=== PATIENT | female | born 1945 | race Caucasian/White ===

== ENCOUNTER → 2020-03-26 | Outpatient (CLI) | payer MEDICARE, BC ==
--- NOTE | 2020-03-26 10:07 | CT ---
EXAMINATION TYPE: CT shoulder RT wo con DATE OF EXAM: 03/26/2020 COMPARISON: None HISTORY: Rt shoulder pain, pre op CT DLP: 572.4 mGycm Automated exposure control for dose reduction was used. FINDINGS: Axial images were obtained at 3 mm thick sections. Reconstructed coronal and sagittal plane are revie wed. Three-D reconstructed images are reviewed. There is loss of the glenohumeral joint space. Humeral head spurring is evident. Subchondral cyst formation at the humeral head is evident. Subchondral cyst may be within the glenoid Acromioclavicular joint appears intact. No acute fractures are identified. IMPRESSION: MODERATELY ADVANCED OSTEOARTHRITIC DEGENERATIVE CHANGE RIGHT SHOULDER.
== END | disposition home or self-care (01) ==
LOC: RADCTMAIN 07:04
PROVIDERS: ATTEND Orthopaedic Surgery Sports Medicine
DX: M19.011 Primary osteoarthritis, right shoulder (principal); I10 Essential (primary) hypertension; M19.012 Primary osteoarthritis, left shoulder; Z85.9 Personal history of malignant neoplasm, unspecified

== ENCOUNTER → 2020-04-01 | Outpatient (CLI) | payer MEDICARE, BC ==
[2020-04-01 15:16] LABS: Albumin 4.2 g/dL (3.5-5.0); Calcium 10.2 mg/dL (8.4-10.2); Potassium 4.2 mmol/L (3.5-5.1); Total Bilirubin 0.4 mg/dL (0.2-1.3); Total Protein 7.5 g/dL (6.3-8.2)
[2020-04-01 15:18] LABS: HCT 42.7 % (34.0-46.0); HGB 13.5 gm/dL (11.4-16.0); MCH 31.5 pg (25.0-35.0); MCHC 31.7 g/dL (31.0-37.0); MCV 99.6 fL (80.0-100.0); Mean Platelet Volume 7.1; Platelet Count 248 k/uL (150-450); RBC 4.29 m/uL (3.80-5.40); RDW 13.3 % (11.5-15.5); WBC 7.9 k/uL (3.8-10.6)
[2020-04-01 15:20] LABS: INR 0.9 (<1.2); Prothrombin Time 9.7 sec (9.0-12.0)
[2020-04-01 16:09] LABS: Appearance,Urine Slightly Cloudy (Clear); Bilirubin,Urine Negative (Negative); Blood,Urine Negative (Negative); Color,Urine Yellow; Glucose,Urine (UA) Negative (Negative); Hyaline Casts,Urine 1 /lpf (0-2); Ketones,Urine Negative (Negative); Mucus,Urine Rare /hpf; Protein,Urine Negative (Negative); RBC,Urine 1 /hpf (0-5); Specific Gravity,Urine 1.015 (1.001-1.035); Squamous Epithelial Cell,Urine <1 /hpf (0-4); WBC,Urine 1 /hpf (0-5)
[2020-04-01 16:10] LABS: Leukocyte Esterase,Urine Negative (Negative); Nitrite,Urine Negative (Negative); Urobilinogen,Urine <2.0 mg/dL (<2.0)
== END | disposition home or self-care (01) ==
LOC: LABPAT 14:52
PROVIDERS: ATTEND Orthopaedic Surgery Sports Medicine
DX: Z01.818 Encounter for other preprocedural examination (principal)
CPT/HCPCS: 36415; 80053; 81001; 85027; 85610; 85730

== ENCOUNTER → 2020-04-05 | Outpatient (CLI) | payer MEDICARE, BC | END | disposition home or self-care (01) | LOC: LABPAT 10:21 | PROVIDERS: ATTEND Orthopaedic Surgery Sports Medicine | DX: Z01.812 Encounter for preprocedural laboratory examination (principal) | CPT/HCPCS: 87070 ==

== ENCOUNTER 2020-04-11 07:07 | Inpatient (IN) | payer MEDICARE, BC ==
[2020-04-08 16:13] VITALS: BMI 37.0
[~2020-04-11 07:07] MED LIST: DEXAMETHASONE SOD PHOSPHATE 10 MG/ML 1 ML VIAL IV ONE; LIDOCAINE 1% (10MG/ML) FOR IV START INTRADERMA PRN; ONDANSETRON 4 MG/2 ML VIAL IVP ONE
[2020-04-11] MEDS: LACTATED RINGERS 1,000 ML IV SCH ×3 (07:45→22:58)
[2020-04-11] MEDS ORDERED: ONDANSETRON 4 MG/2 ML VIAL ONE ×2 (07:53→09:31)
[2020-04-11] MEDS ORDERED: diphenhydrAMINE 25 MG CAP PO PRN (09:27)
[2020-04-11] MEDS ORDERED: TEMAZEPAM 15 MG CAP PO PRN (09:27)
[2020-04-11] MEDS ORDERED: SENNOSIDES-DOCUSATE SODIUM 1 EACH TAB PO PRN (09:27)
[2020-04-11] MEDS ORDERED: METOCLOPRAMIDE 5 MG/ML 2 ML VIAL IVP PRN (09:27)
[2020-04-11] MEDS ORDERED: HYDROmorphone 0.5 MG/0.5 ML SYRINGE IVP PRN ×3 (09:27)
[2020-04-11] MEDS ORDERED: ONDANSETRON 4 MG/2 ML VIAL IVP PRN (09:27)
[2020-04-11] MEDS ORDERED: SODIUM CHLORIDE 0.9% 100 ML BAG ONE (09:31)
[2020-04-11] MEDS ORDERED: SUCCINYLCHOLINE CHLORIDE VIAL 200 MG/10 ML VIAL IV ONE (09:31)
[2020-04-11] MEDS ORDERED: TRANEXAMIC ACID 1,000 MG/10 ML VIAL ONE (09:31)
[2020-04-11] MEDS ORDERED: ePHEDrine SULFATE/0.9% NACL/PF 50 MG/5 ML SYRINGE IV ONE (09:31)
[2020-04-11] MEDS ORDERED: ROCURONIUM BROMIDE 10 MG/ML 5 ML VIAL IV ONE (09:31)
[2020-04-11] MEDS ORDERED: NEOSTIGMINE 1 MG/ML 10 ML VIAL ONE (09:31)
[2020-04-11] MEDS ORDERED: PROPOFOL 10 MG/ML 20 ML VIAL IV ONE (09:31)
[2020-04-11] MEDS ORDERED: LIDOCAINE 1% INJ 10MG/ML (20 ML MDV) ONE (09:31)
[2020-04-11] MEDS ORDERED: MIDAZOLAM 2 MG/2 ML VIAL ONE (09:31)
[2020-04-11] MEDS ORDERED: GLYCOPYRROLATE 0.2 MG/ML 2 ML VIAL ONE (09:31)
[2020-04-11] MEDS ORDERED: fentaNYL (PF) 50 MCG/ML 2 ML AMP ONE (09:31)
[2020-04-11] MEDS ORDERED: HYDROcodone/APAP 7.5-325MG 1 EACH TAB PO PRN ×2 (09:32)
[2020-04-11] MEDS ORDERED: VANCOMYCIN 1,000 MG VIAL MISCELLANE ONE (10:15)
[2020-04-11] MEDS: HYDROmorphone 0.5 MG/0.5 ML SYRINGE IVP PRN ×3 (11:47→13:56)
[2020-04-11] MEDS ORDERED: LACTATED RINGERS 1,000 ML IV ONE ×2 (12:15)
--- NOTE | 2020-04-11 13:49 | XR ---
EXAMINATION TYPE: XR shoulder limited RT DATE OF EXAM: 04/11/2020 CLINICAL HISTORY: pain TECHNIQUE: Portable right shoulder. COMPARISON: None FINDINGS: Portable view of the right shoulder demonstrates postoperative the glenohumeral prosthesis with normal alignment. Postsurgical soft tissue changes noted. IMPRESSION: As above.
[2020-04-11] MEDS ORDERED: ALBUTEROL NEBULIZED 2.5 MG/3 ML INHALATION PRN (14:18)
--- NOTE | 2020-04-11 14:28 | P.CONS ---
History of Present Illness - Reason for Consult Bradycardia - History of Present Illness Patient is a pleasant 72-year-old female admitted for right shoulder arthroplasty successfully underwent surgery. Patient is still has some pain patient has a surgical drain. Patient is drowsy and still coming out of anesthesia. Patient denied any fever chills dysuria nausea vomiting. Patient the does have history of hypertension blood pressure is low normal which is expected postoperatively patient is on 3 antihypertensive medications including amlodipine, GRECIA inhibitor and propranolol patient is bit bradycardic as well. Heart rate is in 40s Review of Systems REVIEW OF SYSTEMS: CONSTITUTIONAL: No fever, no malaise, no fatigue. HEENT: No recent visual problems or hearing problems. Denied any sore throat. CARDIOVASCULAR: No chest pain, orthopnea, PND, no palpitations, no syncope. PULMONARY: No shortness of breath, no cough, no hemoptysis. GASTROINTESTINAL: No diarrhea, no nausea, no vomiting, no abdominal pain. NEUROLOGICAL: No headaches, no weakness, no numbness. HEMATOLOGICAL: Denies any bleeding or petechiae. GENITOURINARY: Denies any burning micturition, frequency, or urgency. MUSCULOSKELETAL/RHEUMATOLOGICAL: Denies any joint pain, swelling, or any muscle pain. ENDOCRINE: Denies any polyuria or polydipsia. The rest of the 14-point review of systems is negative. Past Medical History Past Medical History: Cancer, Hyperlipidemia, Hypertension, Osteoarthritis (OA) Additional Past Medical History / Comment(s): palpitations, tachycardia, no current rx needed for cholesterol, breast cancer, got psuedomonas infection in sinuses after sinus surgery History of Any Multi-Drug Resistant Organisms: None Reported Past Surgical History: Appendectomy, Breast Surgery, Joint Replacement Additional Past Surgical History / Comment(s): roel hip replacement, sinus surgery x 2, roel oophorectomy, hysteroscopy x 2, roel cateracts, rt breast lumpectomy x2, Past Anesthesia/Blood Transfusion Reactions: Postoperative Nausea & Vomiting (PONV) Past Psychological History: No Psychological Hx Reported Smoking Status: Never smoker Past Alcohol Use History: Rare Past Drug Use History: None Reported - Past Family History Father Family Medical History: Cancer Brother(s) Family Medical History: Cancer Mother Family Medical History: Pulmonary Embolus Medications and Allergies Home Medications Medication Instructions Recorded Confirmed Type Albuterol Inhaler [Ventolin Hfa 1 puff INHALATION DIRECTED PRN 04/08/20 04/08/20 History Inhaler] Aspirin [Adult Low Dose Aspirin EC] 81 mg PO DAILY 04/08/20 04/08/20 History Cholecalciferol (Vitamin D3) 5,000 unit PO DAILY 04/08/20 04/08/20 History [Vitamin D3] Propranolol HCl [Propranolol HCl 120 mg PO DAILY 04/08/20 04/08/20 History ER] Ramipril [Altace] 10 mg PO DAILY 04/08/20 04/08/20 History Turmeric Root Extract [Turmeric] 500 mg PO DAILY 04/08/20 04/08/20 History amLODIPine [Norvasc] 5 mg PO DAILY 04/08/20 04/08/20 History Doxycycline Hyclate 100 mg PO BID #10 tab 04/11/20 Rx HYDROcodone/APAP 7.5-325MG [Blanchard 1 - 2 each PO Q6HR PRN #56 tab 04/11/20 Rx 7.5-325] Allergies Allergy/AdvReac Type Severity Reaction Status Date / Time Iodinated Contrast Media Allergy Rash/Hives Verified 04/11/20 07:49 Sulfa (Sulfonamide Allergy Rash/Hives/ Verified 04/08/20 15:59 Antibiotics) itching Physical Exam Vitals: Vital Signs Temp Pulse Pulse Resp BP BP Pulse Ox 04/11/20 14:00 46 L 16 117/65 100 04/11/20 13:30 45 L 16 114/65 97 04/11/20 13:00 41 L 16 109/63 97 04/11/20 12:45 41 L 14 107/59 97 04/11/20 12:30 44 L 16 106/60 98 04/11/20 12:15 43 L 16 105/56 95 04/11/20 12:00 45 L 16 103/58 97 04/11/20 11:45 51 L 16 108/55 97 04/11/20 11:30 96.8 F L 59 L 16 122/68 98 04/11/20 07:42 98.1 F 66 20 140/67 96 Intake and Output 04/10/20 04/11/20 04/11/20 22:59 06:59 14:59 Intake Total 1050 Output Total 130 Balance 920 Intake: IV 1050 Output: Estimated Blood Loss 130 Other: Weight 93.6 kg PHYSICAL EXAMINATION: GENERAL: The patient is alert and oriented x3, not in any acute distress. Well developed, well nourished. HEENT: Pupils are round and equally reacting to light. EOMI. No scleral icterus. No conjunctival pallor. Normocephalic, atraumatic. No pharyngeal erythema. No thyromegaly. CARDIOVASCULAR: S1 and S2 present. No murmurs, rubs, or gallops. PULMONARY: Chest is clear to auscultation, no wheezing or crackles. ABDOMEN: Soft, nontender, nondistended, normoactive bowel sounds. No palpable organomegaly. MUSCULOSKELETAL: No joint swelling or deformity. Right shoulder has surgical packing and has a surgical drain EXTREMITIES: No cyanosis, clubbing, or pedal edema. NEUROLOGICAL: Gross neurological examination did not reveal any focal deficits. SKIN: No rashes. Assessment and Plan Plan: -Hypertension patient is bit hypotensive and bradycardic because of which I'm holding off beta bradly as well as other to antidepressant medications at this time these can be resumed once her blood pressure starts going up and this postoperative hypotension is expected. Probably she will need a lower-dose of beta bradly. -Right shoulder arthroplasty pain management as per primary service due to prophylaxis per primary service -Hyperlipidemia: The resume statin and resume aspirin as well -Mild sinus bradycardia secondary to propranolol which is being held the patient mainly need a low-dose of propranolol upon discharge
[2020-04-11] MEDS: TRANEXAMIC ACID 1,000 MG in SODIUM CHLORIDE 0.9% 100 ML IVPB SCH ×2 (16:08→16:11)
[2020-04-11] MEDS: ACETAMINOPHEN TAB 500 MG TAB PO PRN ×2 (17:40→23:39)
--- NOTE | 2020-04-11 17:52 | OP ---
OPERATIVE REPORT DATE OF PROCEDURE: 04/11/2020 SURGEON: Jaylon Erazo. CLINICAL APPEALS AUDITOR: Nick Pritchard PA-C. PREOPERATIVE DIAGNOSIS: Right shoulder osteoarthrosis. POSTOPERATIVE DIAGNOSIS: Right shoulder osteoarthrosis. OPERATION: Right reverse total shoulder arthroplasty. ANESTHESIA: General endotracheal. ESTIMATED BLOOD LOSS: 100 mL. DRAINS: One deep drain. COMPLICATIONS: None apparent. DISPOSITION: Post-Anesthesia Care Unit. INDICATIONS: Ne is a very pleasant 74-year-old female with longstanding right shoulder pain. Workup including x-rays revealed advanced osteoarthrosis of the right shoulder. At this point it is felt that she has failed conservative management and she would like to proceed with operative intervention. The risks of the procedure were discussed with her in detail. These risks include but are not limited to risk of infection, nerve damage, bleeding, pain, instability in the shoulder, loosening of the implants and deep infection. There is also a small risk of deep vein thrombosis which could lead to fatal pulmonary embolism. The patient understood the risks. All of her questions were answered to her satisfaction. Appropriate informed consent was obtained. DESCRIPTION OF PROCEDURE: The patient was identified in the preoperative holding area. Surgical site was marked by both the patient and myself. She was given 2 grams of Ancef IV for prophylactic purposes. She was then transferred to the operative suite. She was placed supine on the operating room table. General anesthetic was then administered and dosed per the anesthesia department without apparent complication. Examination under anesthesia was then performed of the right shoulder. She had elevation to 130 degrees. External rotation at the side was to 30 degrees. The patient's right upper extremity was then prepped and draped in the usual sterile fashion. The patient was then placed into the beach chair position, well padded in preparation for surgery. Great care was taken to ensure that her cervical spine was in neutral alignment, well padded and maintained that way throughout the operative procedure. Great care was also taken to ensure that her legs were appropriately padded as well. The patient's right upper extremity was then prepped and draped in the usual sterile fashion. A standard surgical pause undertaken to ensure that we were operating on the correct site and that appropriate preoperative antibiotics had been given. All staff in the room were in agreement and we proceeded. The acromion, AC joint, clavicle and coracoid were marked with a surgical pen. A planned incision starting at the level of the clavicle and extending distally over the deltopectoral interval approximately 1 cm lateral to the coracoid was marked with a surgical pen. The incision was then made with a 10-blade scalpel. Dissection was carried down sharply to the deltoid fascia. The deltopectoral interval was then identified at the level of the clavicle. A small band retractor was then placed onto the proximal deltoid. I then released the deltoid fascia on the lateral aspect of the cephalic vein. The vein was preserved and left in its bed medially. The cephalic vein was protected throughout the entire case. I then identified the clavipectoral fascia. It was incised proximally to the level of the coracoacromial ligament. The coracoacromial ligament was left intact. I then used my finger to spread the interval between the conjoint tendon and the subscapularis. I felt for the axillary nerve, which was readily palpable. I then cleared the subacromial and subdeltoid spaces of bursal and scar tissue. I then utilized a Torres retractor to hold the deltoid and expose the humeral head. I then proceeded with release of the subscapularis in the anterior inferior shoulder capsule. The rotator cuff was inspected. She did have a small tear in the supraspinatus. The rotator interval was then identified. The course of the biceps tendon was also identified. I then released the rotator interval. This was released at the base of the coracoid and then out laterally. The subscapularis and the capsule were then released intratendinously. The subscapularis and capsule release extended distally in a lazy-S fashion approximately 1 cm medial to the biceps tendon. I then continued to release the capsule along the inferior neck in a vertical fashion to approximately the 6 o'clock position. Great care was taken to ensure that the capsule was always visualized as it was released as to avoid any injury to the axillary nerve. I then brought the Mcgowan paint trimmer pipe bowls with the arm externally rotated and abducted. I continued to release the capsule inferomedially to the 4 o'clock position. The inferior osteophytes were now removed as well. This was done with a rongeur. I then proceeded with preparation of the humerus. I removed all the goat's dent osteophytes. I then removed the subchondral plate from the superior aspect of the humeral head utilizing a large rongeur. I then used a starter reamer to gain access to the humeral canal. This was 1 cm medial to the rotator cuff insertion and 1 cm posterior to the bicipital groove. I then prepared the humeral canal with hand reaming. I started with a 6 mm reamer and progressed in 1 mm increments until firm resistance was encountered. This was at 9 mm. The reamer handle was then left in place. I then utilized a humeral resection guide. This was set at 30 degrees of retrotorsion. The cutting block was then set approximately 1 to 2 mm above the insertion of the rotator cuff. I then proceeded to osteotomize the head with an oscillating saw. I removed the resection guide and then completed the osteotomy. I then proceeded with trial stem placement. I broached the canal starting with a 6 mm broach up to a 9 mm broach. The 9 mm trial broach was then left in place. I made a decision to proceed with a reverse shoulder arthroplasty. She did have tearing of the anterior supraspinatus. The stem was then left in place and I proceeded with exposure of the glenoid. At this point, I did release the biceps tendon. This was tenotomized at the level of the superior labrum. A bone hook was then used to pull the humerus out laterally. I then inspected the joint for any loose bodies. The condition of the cuff was again inspected. It was in excellent condition. The Bhattman retractor was then placed onto the posterior glenoid rim. The arm was placed in approximately 70 to 80 degrees of abduction and in slight flexion on the Mcgowan stand. I then proceeded to remove the hypertrophic labrum to definitively identify the actual glenoid. I then utilized the mini starting drill guide to make the centering hole. This was placed in approximately 10 degrees of inferior tilt in the center of the glenoid. I then proceeded to ream the glenoid with the mini reamer. This was reamed down as minimally as possible to preserve as much subchondral bone as possible. Again, reaming was done with approximately 10 degrees of inferior tilt. I then proceeded with placement of the mini glenoid. This was impacted over the starting wire. This was fully seated and the starting threaded guide pin was then removed. I then placed the central screw. It was a 25 mm central screw. This had excellent purchase in bone, and I was able to tighten it to the point where I could rotate the scapula through the screwdriver when it was fully seated. I then proceeded to place the peripheral locking screws. The anterior and superior 5 mm locking screws were placed and a posterior 5 mm locking screw was placed as well. I did not place an anterior locking screw. I then proceeded to place the real glenosphere. I chose a 36 mm glenosphere. The offset was then impacted onto the real glenosphere on the back table. This was done to inferiorly place the glenosphere as much as possible. The taper was then dried fully and then the glenosphere was seated onto the base plate and impacted into place. I then utilized the Torres retractor and re-delivered the humeral head. I placed a standard tray and standard base plate. The shoulder was then reduced. It was a fairly difficult reduction. The shoulder was stable throughout full range of motion. There was no impingement noted. The conjoint tendon was not overly tight. There was very minimal shuck. It was relatively difficult to re-dislocate the shoulder. I made a decision to go forward with a standard base plate and a standard polyethylene at that point. I then had the pharmacy sales representative open a Biomet 9 mm mini stem, a standard base plate and a standard polyethylene. The mini stem was then impacted into the humerus in approximately 30 degrees of retrotorsion. The polyethylene and standard was then impacted onto the base plate on the back table and then the Banda taper was dried and then it was impacted onto the real stem. The shoulder was then reduced. Again it was a fairly difficult reduction. It was then taken through full range of motion. It was very stable throughout full range of motion. There was no impingement noted. There was very minimal shuck. I then proceeded with closure. I did not repair the subscapularis. The shoulder was thoroughly irrigated with sterile saline solution with antibiotic added via pulse lavage. A deep drain was then placed and brought out superiorly away from the incision. Approximately 500 mg of vancomycin powder was then placed deep. The deltopectoral interval was reapproximated with 0 Vicryl interrupted suture. Again the wound was thoroughly irrigated with sterile saline solution with antibiotic added. The remaining 500 mg of vancomycin powder was then placed subcutaneously. Subcutaneous tissue was closed with 2-0 Vicryl interrupted suture and the skin was closed with a running 3-0 Quill suture. Dermabond was applied to the incision. A sterile compressive dressing was then applied. The patient's right upper extremity was placed in a standard sling. All sponge and needle counts were deemed correct prior to closure. The patient tolerated the procedure without apparent complication. She was transferred to the recovery room in stable condition. ISAI / MARIAH: [id number] /
[2020-04-12] MEDS: LACTATED RINGERS 1,000 ML IV SCH ×3 (05:47→08:14)
[2020-04-12] MEDS: ACETAMINOPHEN TAB 500 MG TAB PO PRN (08:13)
[2020-04-12 08:16] VITALS: BP 122/73; PULSE 64; RESP 17; TEMP 97.7
[2020-04-12] MEDS ORDERED: ASPIRIN 81 MG PO SCH (09:00)
[2020-04-12 09:37] LABS: Basophils % (A) 0 %; Eosinophils % (A) 0 %; HCT 39.3 % (34.0-46.0); HGB 12.3 gm/dL (11.4-16.0); Lymphocytes # (A) 0.9 k/uL (1.0-4.8); Lymphocytes % (A) 7 %; MCH 31.5 pg (25.0-35.0); MCHC 31.3 g/dL (31.0-37.0); MCV 100.6 fL (80.0-100.0); Mean Platelet Volume 7.2; Monocytes # (A) 0.7 k/uL (0-1.0); Monocytes % (A) 6 %; Neutrophils # (A) 10.1 k/uL (1.3-7.7); Neutrophils % (A) 86 %; Platelet Count 236 k/uL (150-450); RBC 3.91 m/uL (3.80-5.40); RDW 12.9 % (11.5-15.5); WBC 11.7 k/uL (3.8-10.6)
--- NOTE | 2020-04-12 11:58 | P.DS ---
Providers Date of admission: 04/11/20 07:07 Expected date of discharge: 04/12/20 Attending physician: Jaylon Erazo Consults: 04/11/20 09:27 Consult Physician Routine Consulting Provider: Chelsey Lemus Consult Reason/Comments: post op medical management Do you want consulting provider notified?: Yes Primary care physician: Stated None Hospital Course: This is a 74-year-old female who was last seen with complaint of continued right shoulder pain by Dr. Erazo. The patient has a known history of degenerative arthritis of the right shoulder and presents to discuss surgical options. After discussion and consideration the patient elects to proceed with . The patient is seen preoperatively by Dr. Knott and cleared for surgery. The patient is admitted to [facility] for right total shoulder arthroplasty. The procedures performed without complication or sequelae. She is doing well postoperatively. Vital signs are stable at discharge. Labs are stable at discharge. The patient is seen and examined bedside this morning. Patient states she is doing well and is experiencing only minimal pain in the right shoulder. she is maintaining right shoulder in a sling. She is tolerating her diet well. She is voiding freely. She has not yet had a bowel movement postoperatively, although she denies abdominal pain. She states she overall feels well. She denies chest pain, shortness breath, nausea, vomiting, fevers, chills, numbness or tingling of the right upper extremity. On examination, the patient is sitting up in the bedside chair in no apparent distress. She is alert and oriented 3. On inspection of the right shoulder, there is a clean, dry, intact surgical dressing in place. There is a Hemovac drain in place. Inspection of the incision reveals a benign surgical incision with no active drainage from incision. No erythema, warmth, fluctuance surrounding the incision. Right upper extremity is warm and well-perfused with brisk capillary refill distally. Radial pulse +2. Motor and sensory function are intact of the right upper extremity. Hemovac drain was pulled bedside and a new dressing was applied. The patient tolerated this well. The patient is discharged to home on postop day #1 pending medical clearance. Please see orders and refer to the med rec for accurate list of medications. Plan - Discharge Summary Discharge Rx Participant: Yes New Discharge Prescriptions: New Doxycycline Hyclate 100 mg PO BID #10 tab HYDROcodone/APAP 7.5-325MG [Amagon 7.5-325] 1 - 2 each PO Q6HR PRN #56 tab PRN Reason: Pain Continue Cholecalciferol (Vitamin D3) [Vitamin D3] 5,000 unit PO DAILY Aspirin [Adult Low Dose Aspirin EC] 81 mg PO DAILY amLODIPine [Norvasc] 5 mg PO DAILY Ramipril [Altace] 10 mg PO DAILY Turmeric Root Extract [Turmeric] 500 mg PO DAILY Albuterol Inhaler [Ventolin Hfa Inhaler] 1 puff INHALATION DIRECTED PRN PRN Reason: sob Propranolol HCl [Propranolol HCl ER] 120 mg PO DAILY #0 Discharge Medication List Albuterol Inhaler [Ventolin Hfa Inhaler] 1 puff INHALATION DIRECTED PRN 04/08/20 [History] Aspirin [Adult Low Dose Aspirin EC] 81 mg PO DAILY 04/08/20 [History] Cholecalciferol (Vitamin D3) [Vitamin D3] 5,000 unit PO DAILY 04/08/20 [History] Ramipril [Altace] 10 mg PO DAILY 04/08/20 [History] Turmeric Root Extract [Turmeric] 500 mg PO DAILY 04/08/20 [History] amLODIPine [Norvasc] 5 mg PO DAILY 04/08/20 [History] Doxycycline Hyclate 100 mg PO BID #10 tab 04/11/20 [Rx] HYDROcodone/APAP 7.5-325MG [Amagon 7.5-325] 1 - 2 each PO Q6HR PRN #56 tab 04/11/20 [Rx] Propranolol HCl [Propranolol HCl ER] 120 mg PO DAILY #0 04/12/20 [Rx] Follow up Appointment(s)/Referral(s): Jaylon Erazo MD [STAFF PHYSICIAN] - 10 Days Activity/Diet/Wound Care/Special Instructions: maintain sling keep wound clean and dry may shower after 3 days if no bleeding' nonweightbearing take meds as directed Continue holding propranolol and Norvasc until primary care evaluation and follow-up Discharge Disposition: HOME SELF-CARE
--- NOTE | 2020-04-12 20:30 | PN ---
PROGRESS NOTE DATE OF SERVICE: 04/12/2020 This 74-year-old woman who was admitted after right shoulder arthroplasty is improving significantly. No chest pain. No palpitations. No fever. EXAM: Alert and oriented x3. Pulse 50, blood pressure 120/70, respirations 17, temperature 97.7, pulse ox 97% on room air. HEENT: Conjunctivae normal. Oral mucosa moist. NECK: No jugular venous distention. No lymph node enlargement. CARDIOVASCULAR: S1, S2, muffled. No S3, no S4, RESPIRATORY: Diminished breath sounds at the bases. Bilateral scattered rhonchi and crackles. ABDOMEN: Soft, nontender. LEGS: No edema, no swelling. NERVOUS SYSTEM: No focal motor or sensory deficits. Right shoulder status arthroplasty. LABS: WBC 7.7, hemoglobin 12.3. ASSESSMENT: 1. Status post right shoulder arthroplasty. 2. Hypertension. 3. Hyperlipidemia. 4. Mild sinus bradycardia. RECOMMENDATIONS AND DISCUSSION: Recommend to continue current medications, symptomatic treatment. Otherwise, resume the home medications. Closely follow with primary physician in the outpatient setting. The rest of the recommendations per Orthopedic Surgery. Continue incentive spirometer. MMODL / IJN: [id number] /
== END 2020-04-12 14:05 | disposition home or self-care (01) | DRG 483 ==
LOC: 2ORMAIN 07:07 → 4SSUR 11:17
PROVIDERS: ADMIT Orthopaedic Surgery Sports Medicine; ATTEND Orthopaedic Surgery Sports Medicine
PROC: 0RRJ00Z Replacement of Right Shoulder Joint with Reverse Ball and Socket Synthetic Substitute, Open Approach (ICD-10-PCS; principal; 2020-04-11 09:00)
DX: M19.011 Primary osteoarthritis, right shoulder (principal); I95.9 Hypotension, unspecified; E78.5 Hyperlipidemia, unspecified; I10 Essential (primary) hypertension; R00.1 Bradycardia, unspecified; Z79.82 Long term (current) use of aspirin; Z79.899 Other long term (current) drug therapy; Z96.643 Presence of artificial hip joint, bilateral; Z85.3 Personal history of malignant neoplasm of breast; Z90.11 Acquired absence of right breast and nipple; Z90.722 Acquired absence of ovaries, bilateral; Z87.19 Personal history of other diseases of the digestive system; Z90.49 Acquired absence of other specified parts of digestive tract; Z98.890 Other specified postprocedural states; Z98.42 Cataract extraction status, left eye; Z98.41 Cataract extraction status, right eye; Z91.041 Radiographic dye allergy status; Z88.2 Allergy status to sulfonamides; Z82.49 Family history of ischemic heart disease and other diseases of the circulatory system
CPT/HCPCS: 85025; 88300; 94640